=== PATIENT | female | born 1980 | race Caucasian/White ===

== ENCOUNTER 2016-08-19 09:20 | Emergency (ER) | payer SELFPAY ==
--- NOTE | 2016-08-19 10:13 | RAD ---
HISTORY: Left shoulder trauma COMPARISONS: None VIEWS: 4, Frontal internal rotation, external rotation, outlet, and axillary views of the left shoulder FINDINGS: BONE DENSITY: Normal. BONES: There is no displaced fracture. JOINTS: There is no arthropathy. ALIGNMENT: There is no dislocation. SOFT TISSUES: There is minimal soft tissue calcification along the proximal humerus OTHER FINDINGS: There is a calcified granuloma of the lung. IMPRESSION: MINIMAL SOFT TISSUE CALCIFICATION SUGGESTIVE OF A CALCIFIC TENDINOPATHY. NO ACUTE OSSEOUS INJURY. IF SYMPTOMS PERSIST, RECOMMEND REPEAT IMAGING.
--- NOTE | 2016-08-19 10:38 | UC ---
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 At one point an empty dresser fell onto the back of Pt' s L shoulder; did not have any significant pain at that point, but through the day L shoulder pain increased, lots of pain overnight, and now she cannot get her arm over her head. Has hx of L carpal tunnel with surgical release. No prior shoulder surgeries or injuries. - History of Current Complaint Chief Complaint: UCUpperExtremity Stated Complaint: SHOULDER INJURY Time Seen by Provider: 08/19/16 09:52 Hx Obtained From: Patient Hx Last Menstrual Period: does not get / has IUD ?: No Onset/Duration: Gradual Onset, Lasting Hours Timing: Constant Severity Initially: Mild Severity Currently: Moderate Character: Dull, Aching Aggravating Factor(s): Lifting Alleviating Factor(s): Rest Related History: Dominant Hand Right - Allergies/Home Medications Allergies/Adverse Reactions: Allergies Allergy/AdvReac Type Severity Reaction Status Date / Time Amoxicillin Allergy Hives Verified 08/19/16 09:27 Penicillins Allergy Anaphylatic Verified 08/12/15 06:39 Shock PMH/Surg Hx/FS Hx/Imm Hx Previously Healthy: Yes - Surgical History Surgical History: Yes Surgery Procedure, Year, and Place: 1999 LAPAROSCOPIC CHOLECYSTECTOMY, [facility]. TEETH EXTRACTIONS, DENTAL OFFICE - Family History Known Family History: Positive: Hypertension - Social History Alcohol Use: None Substance Use Type: None Smoking Status (MU): Light Every Day Tobacco Smoker Type: Cigarettes Amount Used/How Often: 5 CIGARETTES PER DAY Length of Time of Smoking/Using Tobacco: 21 YEARS Have You Smoked in the Last Year: Yes Review of Systems Constitutional: Negative Skin: Negative Eyes: Negative ENT: Negative Respiratory: Negative Cardiovascular: Negative Gastrointestinal: Negative Genitourinary: Negative Motor: Negative Neurovascular: Negative Musculoskeletal: Arthralgia - L shoulder, Decreased ROM - L shoulder Neurological: Negative Psychological: Negative All Other Systems Reviewed And Are Negative: Yes Physical Exam Triage Information Reviewed: Yes Appearance: Well-Appearing, No Pain Distress, Well-Nourished Vital Signs: Initial Vital Signs Temp 97.8 F 08/19/16 09:22 Pulse 76 08/19/16 09:22 Resp 18 08/19/16 09:22 Pulse Ox 98 08/19/16 09:22 Vital Signs Reviewed: Yes Eye Exam: Normal Eyes: Positive: Conjunctiva Clear ENT Exam: Normal ENT: Positive: Normal ENT inspection, Hearing grossly normal, Pharynx normal, TMs normal Dental Exam: Normal Neck exam: Normal Neck: Positive: Supple, Nontender, No Lymphadenopathy Respiratory Exam: Normal Respiratory: Positive: Chest non-tender, Lungs clear, Normal breath sounds, No respiratory distress, No accessory muscle use Cardiovascular Exam: Normal Cardiovascular: Positive: RRR, No Murmur Musculoskeletal Exam: Other - No L rotator cuff weakness, but tender over insertions Musculoskeletal: Positive: ROM Limited @ - L shoulder cannot get arm overhead due to pain Neurological Exam: Normal Neurological: Positive: Alert Psychological Exam: Normal Skin Exam: Normal Shoulder Course/Dx - Differential Dx/Diagnosis Provider Diagnoses: L rotator cuff tendinitis Discharge - Discharge Plan Condition: Stable Disposition: HOME Prescriptions: Naproxen Sodium [Naproxen Sodium ER 500 MG TAB] 500 mg PO BID #20 tab Patient Education Materials: Rotator Cuff Tendinitis (ED) Forms: *Work Release Referrals: Steve Arnett NP [Primary Care Provider] - Marta Taveras MD [Medical Doctor] - 7 Days Additional Instructions: I think your shoulder pain is from the repetitive pushing and pulling of furniture yesterday. It may take many days or weeks for the inflammation to improve; you should not resume any heavy activity before the pain is improved and you see an orthopedist.
== END 2016-08-19 10:56 | disposition home or self-care (01) ==
LOC: UCEAST 09:20
DX: M75.92 Shoulder lesion, unspecified, left shoulder (principal); Z88.1 Allergy status to other antibiotic agents; Z88.0 Allergy status to penicillin; Z90.49 Acquired absence of other specified parts of digestive tract; F17.210 Nicotine dependence, cigarettes, uncomplicated
CPT/HCPCS: 99213; G0463

== ENCOUNTER 2016-09-14 09:10 | Day surgery (SDC) | payer OTHER ==
--- NOTE | 2016-09-01 11:12 | HP ---
DATE OF ADMISSION: 09/03/2016. DATE OF OFFICE VISIT/ENCOUNTER: 08/25/2016. ATTENDING SURGEON: Dr. Marta Taveras * (dictated by ALEXUS Waite). PROCEDURE: Right carpal tunnel release. CHIEF COMPLAINT: Right hand numbness and tingling. HISTORY OF PRESENT ILLNESS: This is a 36-year-old female who complains of numbness and tingling in her right hand for several years. Her primary complaint is numbness and tingling that occurs when she is driving and that also awakens her during the night. 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 She recently had a left carpal tunnel release and has done quite well with that. She is interested in pursuing a right carpal tunnel release at this time. She has a questionable history of Von Willebrand disease and recently had some lab work to definitively diagnose. We will check those results before proceeding with surgery. PAST MEDICAL HISTORY: Questionable Von Willebrand disease. PAST SURGICAL HISTORY: 1. Cholecystectomy. 2. Oral surgery. 3. Left carpal tunnel release. CURRENT MEDICATIONS: Ibuprofen 800 mg prn pain. ALLERGIES: AMOXICILLIN CAUSES HIVES. FAMILY MEDICAL HISTORY: Noncontributory. SOCIAL HISTORY: The patient is employed at [employer]. She is a current smoker. She smokes a half-a-pack a day and has done so since age 14. She denies illicit drug use, admits to alcohol intake on occasion. REVIEW OF SYSTEMS: General: Negative for fevers, chills, night sweats. She has experienced nausea and vomiting with general anesthesia in the past. HEENT : Negative for headache, lightheadedness, or syncopal episodes. Integumentary: Negative for abrasions, lesions, or open wounds. Cardiothoracic: Negative for chest pain, palpitations, or edema. Negative for hypertension. Pulmonary: Negative for shortness of breath with exertion, chronic cough, COPD. GI: Negative for nausea, vomiting, diarrhea, constipation or GERD. : Negative for nocturia, urinary frequency, urgency, history of UTI's or kidney problems. Musculoskeletal: Positive for current complaint. Negative for chronic or intermittent back pain or history of fractures. Neurological: Negative for a history of seizure, stroke or epilepsy. Endocrine: Negative for diabetes or thyroid issues. Hematologic: Positive for questionable Von Willebrand disease. Negative for anemia or history of DVT. Infectious Disease: Negative for history of MRSA, hepatitis C, or HIV. PHYSICAL EXAMINATION GENERAL: Well-developed, well-nourished, 36-year-old female in no acute distress. VITAL SIGNS: Height 5'5", weight 208 pounds. Pulse rate 86, blood pressure 126 /82. HEENT: Normocephalic, atraumatic. Pupils are equal, round and reactive to light and accommodation. Extraocular movements are intact. Throat is clear. NECK: Supple. No palpable lymph nodes. PULMONARY: Lungs are clear to auscultation bilaterally. No wheezes, rales, or rhonchi. CARDIOTHORACIC: Regular rate or rhythm, S1, S2. No murmurs, rubs or gallops. No edema. ABDOMEN: Positive bowel sounds, soft, nontender. MUSCULOSKELETAL: On exam of her right hand and wrist, there is no visible atrophy at the thenar eminence. There is mild weakness with thumb abduction. She has good range of motion otherwise of her fingers and wrists. She has a negative Tinel's at the wrist, but a mildly positive Phalen's test at the right wrist. Sensation is intake to light touch throughout the right hand. NEUROLOGIC: Alert and oriented times three. Cranial nerves II through XII are intact. IMAGING STUDIES: EMG nerve conduction study shows evidence of right carpal tunnel syndrome. IMPRESSION: Right carpal tunnel syndrome. PLAN: The patient is scheduled to undergo right carpal tunnel release with Dr. Taveras on 09/03/2016. She will return to the office in 10 to 14 days for postop follow-up and suture removal. A prescription for Tylenol 3 was e-scribed to the patient's pharmacy for postoperative pain management. We are awaiting the results of lab work for Von Willebrand disease prior to proceeding with surgery. That was ordered by Dr. Davison. ALEXUS WAITE [id number]/[facility] #: [id number] MTDD
[~2016-09-14 09:10] MED LIST: Buffered Lidocaine 0.9% SYRIN* 5 ML/SYR SYRINGE INTRADERM ONE; Famotidine IV* 10 MG/ML 2 ML (20 mg) IV ONE; Lidocaine 1% INJ* 10 MG/ML 30 ML SDV ONE
[2016-09-14] MEDS ORDERED: Famotidine IV* 10 MG/ML 2 ML (20 mg) ONE (09:43)
[2016-09-14] MEDS ORDERED: fentaNYL* 50 MCG/ML 2 ML VIAL (100 MCG VIAL) ONE (10:01)
[2016-09-14] MEDS ORDERED: Ondansetron INJ* 2 MG/ML VIAL ONE (10:02)
[2016-09-14] MEDS ORDERED: Propofol* 10 MG/ML 20 ML BTL IV PUSH ONE (10:02)
[2016-09-14] MEDS ORDERED: Ketorolac INJ* 30 MG/ML 1 ML VIAL ONE (10:02)
[2016-09-14] MEDS ORDERED: Midazolam* 1 MG/ML 5 ML VIAL (5 MG) ONE (10:02)
[2016-09-14] MEDS ORDERED: Lidocaine 2% PF * 5 ML VIAL ONE (10:02)
[2016-09-14] MEDS ORDERED: oxyCODONE TAB* 5 MG TAB PO PRN (10:42)
[2016-09-14] MEDS ORDERED: Acetaminophen TAB* 325 MG PO PRN (10:42)
[2016-09-14] MEDS ORDERED: DiMENhydriNATE IV* 50 MG/ML VIAL ONE (11:28)
[2016-09-14] MEDS ORDERED: DiMENhydriNATE IV* 50 MG/ML VIAL IV PUSH ONE (11:29)
[2016-09-14 12:13] VITALS: BP 99/63
--- NOTE | 2016-09-15 01:28 | OP ---
DATE OF OPERATION: 09/14/16 [facility] DATE OF : 76 SURGEON: Marta Taveras MD SOIL CHECKER: AELXUS Waite ANESTHESIOLOGIST: Marissa Piña MD ANESTHESIA: Local MAC. PRE-OP DIAGNOSIS: Right carpal tunnel syndrome. POST-OP DIAGNOSIS: Right carpal tunnel syndrome. OPERATIVE PROCEDURE: Right carpal tunnel release. ESTIMATED BLOOD LOSS: Zero. TOURNIQUET TIME: 5 minutes. INDICATION FOR PROCEDURE: Juju is a 36-year-old female with numbness and tingling in the median nerve distribution of her right hand. She presents for a right carpal tunnel release. DESCRIPTION OF PROCEDURE: The patient was brought to the operating room, was given a sedation anesthetic, and a local infiltration of 10 cc of 1% plain lidocaine in the palm of her right hand. The skin of her right hand and forearm was prepped and draped in the usual sterile fashion. The hand and forearm were exsanguinated and tourniquet elevated to 250 mmHg. A longitudinal incision was made in the palm in line with the ring finger. We dissected through the subcutaneous tissue down to the transverse carpal ligament. The ligament was divided sharply with the knife and then more proximally with the scissors. The nerve was dissected free from the surrounding tissue and there was an area of moderate compression at the mid portion of the ligament. The wound was irrigated and skin edges were reapproximated with 4- 0 nylon suture. The wound was dressed with Xeroform, 4x4, Webril, and an Bill wrap. The patient tolerated the procedure well and was brought to the recovery room in good condition. [id number]/[facility] #: [id number] [facility]
== END 2016-09-14 12:22 | disposition home or self-care (01) ==
LOC: OREAST 09:10
PROVIDERS: ATTEND Orthopaedic Surgery
DX: G56.01 Carpal tunnel syndrome, right upper limb (principal); F17.210 Nicotine dependence, cigarettes, uncomplicated; D68.0 Von Willebrand disease
CPT/HCPCS: 81025; J1240; J1885; J2001; J2250; J2405; J2704; J3010

== ENCOUNTER 2017-10-26 13:27 | Emergency (ER) | payer OTHER ==
[2017-10-26 14:34] VITALS: BP 114/61
--- NOTE | 2017-10-26 14:40 | UC ---
Dental HPI - HPI Summary HPI Summary: 37 yo female presents with right sided dental pain. She tells me that she knows she has bad teeth and has a few missing teeth as well as fractured teeth. Over the last 3-4 days has had increased swelling and pain to right lower gums. She called her dentist who recommended she be seen and started on an antibiotic. She is able to eat and drink. Has been taking ibuprofen and tylenol for pain with mild relief. Denies fever or chills - History of Current Complaint Chief Complaint: UCDentalProblem Stated Complaint: TOOTH ACHE Time Seen by Provider: 10/26/17 14:40 Hx Obtained From: Patient Hx Last Menstrual Period: iud Onset/Duration: Gradual Onset Severity: Mild Pain Intensity: 2 Pain Scale Used: 0-10 Numeric - Allergies/Home Medications Allergies/Adverse Reactions: Allergies Allergy/AdvReac Type Severity Reaction Status Date / Time Penicillins Allergy Anaphylatic Verified 10/26/17 14:28 Shock Amoxicillin Allergy Anaphylatic Uncoded 10/26/17 14:28 Shock PMH/Surg Hx/FS Hx/Imm Hx - Additional Past Medical History Additional PMH: None - Surgical History Surgical History: Yes Surgery Procedure, Year, and Place: 1999 LAPAROSCOPIC CHOLECYSTECTOMY, [facility]. TEETH EXTRACTIONS, DENTAL OFFICE. Bilateral carpal tunnel release 08/2015, 1016 - Family History Known Family History: Positive: Hypertension - Social History Lives: With Family Alcohol Use: None Substance Use Type: None Smoking Status (MU): Light Every Day Tobacco Smoker Type: Cigarettes Amount Used/How Often: 10 CIGARETTES PER DAY, smoked since 14 years old Length of Time of Smoking/Using Tobacco: 21 YEARS Have You Smoked in the Last Year: Yes Review of Systems Constitutional: Negative Skin: Negative ENT: Dental Pain Respiratory: Negative Cardiovascular: Negative Neurological: Negative Psychological: Negative All Other Systems Reviewed And Are Negative: Yes Physical Exam - Summary Physical Exam Summary: GENERAL: NAD. WDWN. No pain distress. SKIN: No rashes, sores, lesions, or open wounds. HEENT: Head: AT/NC Throat: Posterior oropharynx without exudates, erythema, or tonsillar enlargement. Uvula midline. NECK: Supple. Nontender. No lymphadenopathy. CHEST: CTAB. No r/r/w. No accessory muscle use. Breathing comfortably and in no distress. CV: RRR. Without m/r/g. Pulses intact. Cap refill <2seconds NEURO: Alert. PSYCH: Age appropriate behavior. Triage Information Reviewed: Yes Vital Signs: Initial Vital Signs Temp 98 F 10/26/17 14:29 Pulse 67 10/26/17 14:29 Resp 16 10/26/17 14:29 BP 114/61 10/26/17 14:29 Pulse Ox 100 10/26/17 14:29 Vital Signs Reviewed: Yes Dental: Positive: Percussion Tenderness @ - Tooth #30, Gross Decay/Caries @ - Throughout, Dental Fracture @ - Tooth #30, Abscess @ - Tooth #30. Negative: Cellulitis @, Cervical Lymphadenopathy, Bleeding Dental Complaint Course/Dx - Course Course Of Treatment: Reference #: [id number]. Tooth #30 abscess - Differential Dx/Diagnosis Provider Diagnoses: Tooth #30 abscess Discharge - Sign-Out/Discharge Documenting (check all that apply): Patient Departure All imaging exams completed and their final reports reviewed: No Studies - Discharge Plan Condition: Stable Disposition: HOME Prescriptions: Acetaminophen with Codeine [Acetaminophen-Cod #3 Tablet] 1 each PO BID PRN #8 tablet MDD 2 PRN Reason: Pain Clindamycin Cap(NF) [Clindamycin Cap 300 mg Cap(NF)] 150 mg PO TID #21 cap Patient Education Materials: Dental Abscess (ED) Referrals: Steve Arnett NP [Primary Care Provider] - Additional Instructions: If you develop a fever, shortness of breath, chest pain, new or worsening symptoms - please call your PCP or go to the ED. 1) Please schedule a follow up appointment with your dentist as soon as possible - Billing Disposition and Condition Condition: STABLE Disposition: Home
== END 2017-10-26 14:56 | disposition home or self-care (01) ==
LOC: UCEAST 13:27
DX: K04.7 Periapical abscess without sinus (principal); Z88.0 Allergy status to penicillin; F17.210 Nicotine dependence, cigarettes, uncomplicated
CPT/HCPCS: 99212; G0463

== ENCOUNTER → 2018-05-04 12:35 | Emergency (ER) | payer OTHER ==
[2018-05-04 13:17] LABS: Influenza A Molecular POSITIVE (Negative)
--- NOTE | 2018-05-04 13:40 | ED ---
Influenza-Like Illness - HPI Summary HPI Summary: Patient is a 38-year-old female who presents emergency department for fever, cough, headache 4 days. 2 patient's family members are also being seen with similar symptoms. Patient states she also noted a rash over the last few days that is to her arms trunk. She states it is minimally itching. Denies any new medications, contacts symptoms, detergents, etc. Patient hasa past medical history. Symptoms are mild in severity. No current modifying factors. Patient does note some mild nausea and vomiting that has resolved. Otherwise denies abdominal pain or urinary symptoms. - History of Current Complaint Chief Complaint: EDFluSymptoms Time Seen by Provider: 05/04/18 13:39 Hx Obtained From: Patient - Allergy/Home Medications Allergies/Adverse Reactions: Allergies Allergy/AdvReac Type Severity Reaction Status Date / Time Penicillins Allergy Anaphylatic Verified 10/26/17 14:28 Shock Amoxicillin Allergy Anaphylatic Uncoded 10/26/17 14:28 Shock PMH/Surg Hx/FS Hx/Imm Hx Previously Healthy: Yes Endocrine/Hematology History: Reports: Hx Anemia Denies: Hx Bone Marrow Disease, Hx Sickle Cell Disease Cardiovascular History: Denies: Other Cardiovascular Problems/Disorders Respiratory History: Denies: Other Respiratory Problems/Disorders GI History: Denies: Other GI Disorders History: Denies: Other Problems/Disorders Musculoskeletal History: Reports: Hx Arthritis - right hip, Hx Tendonitis - rotator cuff shoulder left, bilateral carpal tunnel release Denies: Other Musculoskeletal History Sensory History: Denies: Hx Contacts or Glasses, Hx Hearing Aid Opthamlomology History: Denies: Hx Contacts or Glasses Neurological History: Denies: Other Neuro Impairments/Disorders - Surgical History Surgery Procedure, Year, and Place: 1999 LAPAROSCOPIC CHOLECYSTECTOMY, [facility]. TEETH EXTRACTIONS, DENTAL OFFICE. Bilateral carpal tunnel release 08/2015, 1016 Hx Anesthesia Reactions: Yes - nausea with vomiting after suregry Infectious Disease History: No Infectious Disease History: Denies: History Other Infectious Disease, Traveled Outside the [place] in Last 30 Days - Family History Known Family History: Positive: Hypertension, Non-Contributory Family History: NON CONTRIBUTORY - Social History Occupation: Unemployed Lives: With Family Alcohol Use: None Substance Use Type: Reports: None Smoking Status (MU): Light Every Day Tobacco Smoker Type: Cigarettes Amount Used/How Often: 10 CIGARETTES PER DAY, smoked since 14 years old Length of Time of Smoking/Using Tobacco: 21 YEARS Have You Smoked in the Last Year: Yes Review of Systems Positive: Fever, Chills Eyes: Negative Positive: Nasal Discharge Cardiovascular: Negative Positive: Cough. Negative: Shortness Of Breath Gastrointestinal: Negative Genitourinary: Negative Positive: Rash Positive: Headache All Other Systems Reviewed And Are Negative: Yes Physical Exam Triage Information Reviewed: Yes Vital Signs On Initial Exam: Initial Vitals Temp Pulse Resp BP Pulse Ox 97.2 F 88 18 123/85 97 05/04/18 12:47 05/04/18 12:47 05/04/18 12:47 05/04/18 12:47 05/04/18 12:47 Vital Signs Reviewed: Yes Appearance: Positive: Well-Appearing - Pt. sitting in chair in NAD. Family present. Skin: Positive: Warm, Dry, Other - Faint erythematous macular/papular rash noted to arms and trunk. No vesicles or blisters. Blanchable. Negative nikolsky sign. Does not involve mucosa/hands/feet. Head/Face: Positive: Normal Head/Face Inspection Eyes: Positive: Normal, EOMI, KIMBERLY, Conjunctiva Clear ENT: Positive: Pharynx normal, TMs normal Neck: Positive: Supple, Nontender. Negative: Nuchal Rigidity Respiratory/Lung Sounds: Positive: Clear to Auscultation, Breath Sounds Present. Negative: Rales, Rhonchi, Wheezes Cardiovascular: Positive: Normal, RRR Musculoskeletal: Positive: Normal, Strength/ROM Intact Neurological: Positive: Normal, CN Intact II-III Psychiatric: Positive: Affect/Mood Appropriate Diagnostics - Vital Signs Vital Signs Temp Pulse Resp BP Pulse Ox 05/04/18 12:47 97.2 F 88 18 123/85 97 - Laboratory Lab Results: Lab Results 05/04/18 Range/Units 13:12 Influenza A (Rapid) Positive A (Negative) Lab Statement: Any lab studies that have been ordered have been reviewed, and results considered in the medical decision making process. Flu Symptom Course/Dx - Course Course Of Treatment: Pt. presenting for the above symptoms. She is afebrile with stable VS. Positive for flu A. advised patient to continue supportive treatment with Tylenol or Motrin for pain and fever. Increase fluids. Follow- up with PCP. - Diagnoses Differential Diagnosis/HQI/PQRI: Positive: Influenza, Pneumonia, Upper Respiratory Infection Provider Diagnoses: Influenza A Discharge - Sign-Out/Discharge Documenting (check all that apply): Patient Departure Patient Received Moderate/Deep Sedation with Procedure: No - Discharge Plan Condition: Good Disposition: HOME Patient Education Materials: Influenza (ED) Forms: *Work Release Referrals: Steve Arnett, STEREOPLOTTER OPERATOR [Primary Care Provider] - Additional Instructions: Follow up with PCP Increase fluids and rest Tylenol or Motrin for pain and fever as directed Return to ER if symptoms change or worsen - Billing Disposition and Condition Condition: GOOD Disposition: Home
[2018-05-04 14:57] VITALS: BP 129/91
== END | disposition home or self-care (01) ==
LOC: ED 12:35
DX: J11.1 Influenza due to unidentified influenza virus with other respiratory manifestations (principal); D64.9 Anemia, unspecified; Z88.0 Allergy status to penicillin; Z88.3 Allergy status to other anti-infective agents
CPT/HCPCS: 99282